=== PATIENT | male | born 1990 ===

== ENCOUNTER 2019-01-19 20:25 | Emergency (ER) | payer OTHER ==
--- NOTE | 2019-01-19 20:42 | UC ---
Shoulder Pain HPI - HPI Summary HPI Summary: 28 yo male presents with RIGHT shoulder injury. He tells me that just [employer] he was in [facility] and was being wrestled on the ground and felt a pop in his right shoulder. Since that time has been unable to lift his shoulder and has pain. He has dislocated his LEFT shoulder in the past and states his right shoulder feels similar. Has some tingling sensations in his hand, but no numbness. No neck, elbow, or arm pain. - History of Current Complaint Stated Complaint: RT SHOULDER INJURY Time Seen by Provider: 01/19/19 20:42 Hx Obtained From: Patient Onset/Duration: Sudden Onset Timing: Constant Severity Initially: Mild Severity Currently: Moderate Pain Intensity: 5 Pain Scale Used: 0-10 Numeric - Allergies/Home Medications Allergies/Adverse Reactions: Allergies Allergy/AdvReac Type Severity Reaction Status Date / Time No Known Allergies Allergy Verified 01/19/19 20:47 PMH/Surg Hx/FS Hx/Imm Hx - Additional Past Medical History Additional PMH: None - Surgical History Surgical History: Yes Surgery Procedure, Year, and Place: WISDOM TEETH - Family History Known Family History: Positive: None - Social History Lives: With Family Alcohol Use: None Substance Use Type: None Review of Systems All Other Systems Reviewed And Are Negative: No Constitutional: Positive: Negative Skin: Positive: Negative Respiratory: Positive: Negative Cardiovascular: Positive: Negative Motor: Positive: Negative Neurovascular: Positive: Negative Musculoskeletal: Positive: Other: - Right shoulder pain Neurological: Positive: Negative Psychological: Positive: Negative Physical Exam - Summary Physical Exam Summary: GENERAL: NAD. WDWN. No pain distress. SKIN: No rashes, sores, lesions, or open wounds. CHEST: No accessory muscle use. Breathing comfortably and in no distress. CV: Pulses intact radial and ulnar. Cap refill <2seconds MSK: RIGHT SHOULDER: Obvious bony deformity with anterior displacement. Mild TTP about shoulder. Right elbow FROM nttp. POST REDUCTION: FROM pain with flexion. NEURO: Alert. Sensations intact hand and all fingers. PSYCH: Age appropriate behavior. Triage Information Reviewed: Yes Vital Signs: Vital Signs: Temp Pulse Resp BP Pulse Ox 98.6 F 75 16 120/81 98 01/19/19 20:42 01/19/19 20:42 01/19/19 20:42 01/19/19 20:42 01/19/19 20:42 Vital Signs Reviewed: Yes Procedures - Joint Reduction Right Joint Reduction Site: shoulder (R) Conscious Sedation: No Reduction Attempts: 1 Pre-Procedure NV Exam: Yes Post Joint Reduction Film: joint reduced Diagnostics - Radiology Shoulder initial Radiology Interpretation Completed By: ED Physician Summary of Radiographic Findings: Dislocation. No fx Shoulder post reduction Radiology Interpretation Completed By: ED Physician Summary of Radiographic Findings: Reduced Shoulder Course/Dx - Course Course Of Treatment: Initial XR wet read with anterior dislocation. Discussed with pt. He declined po pain medication. Chair method used for reduction x1 with successful reduction. Post reduction XR confirms good placement of reduction. Pt placed in sling and provided with ice. Continues to decline pain medication. Advised to rest, ice, and use the sling as much as possible for 3 weeks. Recommend f/u with [facility] within 1 week for further eval - Differential Dx/Diagnosis Provider Diagnosis: Dislocation of right shoulder joint Discharge ED - Sign-Out/Discharge Documenting (check all that apply): Patient Departure All imaging exams completed and their final reports reviewed: No - Discharge Plan Condition: Stable Disposition: HOME Patient Education Materials: Shoulder Dislocation Exercises (GEN), Shoulder Dislocation (ED) Referrals: No Primary Care Phys,NOPCP [Primary Care Provider] - [facility] [Provider Group] - As Soon As Possible Additional Instructions: If you develop a fever, shortness of breath, chest pain, new or worsening symptoms - please call your PCP or go to the ED immediately. Your shoulder was dislocated and put back into place in the clinic this evening. It is important that you use the sling and have the shoulder immobilized for about 3 weeks. I recommend that you call our [facility] clinic at the number below to schedule an appointment for further treatment of your shoulder dislocation. - Billing Disposition and Condition Condition: STABLE Disposition: Home
[2019-01-19 20:47] VITALS: BP 120/81
[2019-01-19] MEDS ORDERED: Ibuprofen TAB* 400 MG PO ONE (21:07)
--- NOTE | 2019-01-20 14:57 | UC ---
- Progress Note Progress Note: Progress note: xray follow up: anterior dislocation reduced; no fx. Yvon Fernandez MD Course/Dx - Diagnoses Provider Diagnoses: Dislocation of right shoulder joint Discharge ED - Sign-Out/Discharge Documenting (check all that apply): Post-Discharge Follow Up All imaging exams completed and their final reports reviewed: Yes - Discharge Plan Condition: Stable Disposition: HOME Patient Education Materials: Shoulder Dislocation Exercises (GEN), Shoulder Dislocation (ED) Referrals: [facility] [Provider Group] - As Soon As Possible No Primary Care Phys,NOPCP [Primary Care Provider] - Additional Instructions: If you develop a fever, shortness of breath, chest pain, new or worsening symptoms - please call your PCP or go to the ED immediately. Your shoulder was dislocated and put back into place in the clinic this evening. It is important that you use the sling and have the shoulder immobilized for about 3 weeks. I recommend that you call our [facility] clinic at the number below to schedule an appointment for further treatment of your shoulder dislocation. - Billing Disposition and Condition Condition: STABLE Disposition: Home
== END 2019-01-19 21:35 | disposition home or self-care (01) ==
LOC: UCEAST 20:25
DX: S43.004A Unspecified dislocation of right shoulder joint, initial encounter (principal); X50.9XXA Other and unspecified overexertion or strenuous movements or postures, initial encounter; Y93.72 Activity, wrestling; Y92.9 Unspecified place or not applicable
CPT/HCPCS: 23650; 99202; G0463